=== PATIENT | male | born 1995 | race Caucasian/White ===

== ENCOUNTER 2018-07-11 12:13 | Emergency (ER) | payer OTHER ==
[~2018-07-11] VITALS: Ht 152.4 cm; Wt 84.8 kg
[~2018-07-11 12:13] MED LIST: ACCUNEB SO1.25 MG/1; ACETAMINOPHEN325 M1 PO; NAPROSYN500 MG PO; SINGULAIR4 M1; UNK INHALER; VENTOLIN HFA 1818 GM
[2018-07-11 13:35] LABS: ABSOLUTE NEUTROPHILS 15.4 thou/uL (1.4-8.2); BASOPHILS 0.8 % (0.0-2.0); EOSINOPHILS 0.8 % (0.0-3.0); HEMOGLOBIN 15.4 gm/dL (14.0-18.0); LYMPHOCYTES 13.3 % (24.0-44.0); MCHC 34.2 g/dL (28.0-37.0); MCV 84.8 fL (80.0-100.0); MONOCYTES 6.2 % (1.0-8.0); PLATELET COUNT 349 thou/uL (150-400); POLYS 78.9 % (36.0-66.0); RBC 5.31 mil/uL (4.50-6.00); RDW 13.1 % (10.5-14.5); WBC 19.5 thou/uL (4.0-11.0)
[2018-07-11 13:42] LABS: CALCIUM 9.2 mg/dL (8.5-10.1); POTASSIUM 3.4 mmol/L (3.5-5.1)
[2018-07-11 13:48] LABS: ALBUMIN 4.3 g/dL (3.4-5.0); TOTAL BILIRUBIN 0.5 mg/dL (<0.1-1.0); TOTAL PROTEIN 8.6 g/dL (6.4-8.2)
[2018-07-11 15:57] LABS: URINE BILIRUBIN NEGATIVE (Negative); URINE BLOOD NEGATIVE (Negative); URINE CLARITY CLEAR; URINE COLOR YELLOW; URINE GLUCOSE-RANDOM* NEGATIVE (Negative); URINE KETONES NEGATIVE (Negative); URINE LEUKOCYTES-REFLEX NEGATIVE (Negative); URINE NITRITE-REFLEX NEGATIVE (Negative); URINE PROTEIN (DIPSTICK) NEGATIVE (Negative); URINE UROBILINOGEN 0.2 E.U./dl (0.2-1.0)
[2018-07-11 16:05] VITALS: BP 129/78
[2018-07-11] MEDS ORDERED: VENTOLIN HFA 1818 GM INH (16:13)
[2018-07-11] MEDS ORDERED: PREDNISONE 20 M20 MG PO (16:13)
--- NOTE | 2018-07-11 17:08 | EKG ---
[address] [address] ELECTROCARDIOGRAM REPORT Name: MARVIN ARREDONDO JESUS Room #: [facility]P [facility]ITALMichelle[facility] [id number] ������������������ Admission: 07/11/18 ������������������ Attend Phys: Discharge: 07/11/18 ������������������ Date of : [birth year] Report #: [id number] ����������������������������������������������������������������� [id number] THIS REPORT FOR: //name// ED Test Date: 2018-07-11 Test Time: 14:24:45 Pat Name: MARVIN ARREDONDO Department: Room: Gender: Char [employer] T[employer] Cellar: Suha GIFFORD RN : 1995 Requested By: Cortney Garcia Order Number: [id number] MD: Rivera Madrid Measurements Intervals [place] Rate: 126 P: 57 MS: 159 QRS: 77 QRSD: 92 T: 23 QT: 304 QTc: 441 Interpretive Statements Sinus tachycardia No previous ECG available for comparison Electronically Signed On 07-11-2018 17:08:05 CDT by Rivera Madrid [email or web address] ��������������������������������������������� <ELECTRONICALLY SIGNED> ���������������������������������������� By: Rivera Madrid MD ��������������������������������������������� 07/11/18 1708 1424 1424 MD GARLAND Salas
== END 2018-07-11 16:39 | disposition home or self-care (01) ==
LOC: ER 12:13
PROVIDERS: Physician Assistant
DX: J45.909 Unspecified asthma, uncomplicated (principal); D72.829 Elevated white blood cell count, unspecified; R94.5 Abnormal results of liver function studies; Z87.891 Personal history of nicotine dependence